=== PATIENT | female | born 1975 | race Caucasian/White ===

== ENCOUNTER 2020-09-20 20:00 | Emergency (ER) | payer BC ==
[2020-09-20 20:13] VITALS: BP 147/86; PULSE 75; TEMP 98; BMI 24.7
[2020-09-20] MEDS ORDERED: ACETAMINOPHEN 325 MG TABLET (FP) PO ONE (20:35)
[2020-09-20] MEDS ORDERED: ACETAMINOPHEN 325 MG TABLET (FP) ONE (20:42)
== END 2020-09-20 22:42 | disposition home or self-care (01) ==
LOC: FER 20:00
PROC: 0HQ0XZZ Repair Scalp Skin, External Approach (ICD-10-PCS; principal; 2020-09-20)
DX: S09.90XA Unspecified injury of head, initial encounter (principal); S01.01XA Laceration without foreign body of scalp, initial encounter; W19.XXXA Unspecified fall, initial encounter
CPT/HCPCS: 70450-TC; 84703; 99284-25

== ENCOUNTER 2021-10-10 19:33 | Emergency (ER) | payer BC, OTHER ==
[2021-10-10 19:44] VITALS: BP 151/85; PULSE 94; TEMP 99; BMI 21.4
== END 2021-10-10 20:27 | disposition home or self-care (01) ==
LOC: FER 19:33
DX: G44.209 Tension-type headache, unspecified, not intractable (principal)
CPT/HCPCS: 99283-25